=== PATIENT | female | born 1975 | race American Indian/Alaskan Native ===

== ENCOUNTER 2020-10-14 05:54 | Inpatient (IN) | payer OTHER ==
[2020-10-13 10:15] LABS: Hematocrit 28.8 % (30.3-42.9); Mean Corpuscular HGB Conc 31 % (30-34); Mean Corpuscular Volume 82 fl (79-97); Platelet Count 192 K/mm3 (140-440); Red Blood Count 3.52 M/mm3 (3.65-5.03)
[2020-10-13 10:17] LABS: Red Cell Distribution Width 25.1 % (13.2-15.2)
[2020-10-13 11:59] LABS: Anisocytosis 1+; Total Cells Counted 100
[2020-10-13 12:00] LABS: Hypochromasia 1+; Ovalocytes Few; Platelet Estimate Consistent w Auto
--- NOTE | 2020-10-13 13:31 | History and Physical Report ---
History of Present Illness Date of examination: 10/08/20 Date of admission: 10/14/2020 Chief complaint: Menorrhagia, anemia, uterine fibroid and pelvic pain History of present illness: This is a 45-year-old female with a long history of anemia caused by menorrhagia and requiring multiple blood transfusions and iron infusions. She presents now for definitive therapy in the fom of hysterectomy Past History : 2 Term Births: 1 Living Children: 1 Elect. Ab: 1 # 1 Delivery date: 1994 Delivery type: MED ADMIN History Operations: Myomectomy (1996)(2000) Abnormal PAP: positive Infection History HIV Risk Eval: no Personal hx. of genital herpes: yes Hx of STD: Trichomonas Other: HSV Active Medications (reviewed today): None Current Allergies (reviewed today): No known allergies Past Medical History: Reviewed history from 09/10/2020 and no changes required: Blood Transfusion (06/01/2019) 4units for hgb 4.2 Blood Transfusion (06/17/2020) Fe Infusions x4 Anemia Fibroids Past Surgical History: Reviewed history from 08/01/2019 and no changes required: Myomectomy (1996)(2000) Family History Summary: Reviewed history Last on 08/06/2020 and no changes required:10/13/2020 Uncle - Has Family History of Stomach Cancer - Maternal - Entered On: 10/08/2020 Other Family Member - Has No Family History of Uterine Cancer - Entered On: 07/29/2019 Other Family Member - Has No Family History of Small Bowel Cancer - Entered On: 07/29/2019 Other Family Member - Has No Family History of Stomach Cancer - Entered On: 07/29/2019 Other Family Member - Has No Family History of Pancreatic Cancer - Entered On: 07/29/2019 Other Family Member - Has No Family History of Ovarvian Cancer - Entered On: 07/29/2019 Other Family Member - Has No Family History of Kidney/Urinary Tract Cancer - Entered On: 07/29/2019 Other Family Member - Has No Family History of Spontaneous DVT-PE - Entered On: 07/29/2019 Other Family Member - Has No Family History of Colon Cancer - Entered On: 2019 Other Family Member - Has No Family History of Breast Cancer - Entered On: 07/29/2019 Other Family Member - Has No Family History of Biliary Tract Cancer - Entered On: 07/29/2019 Aunt - Has Family History of Brain Cancer - Maternal - Entered On: 07/29/2019 General Comments - FH: MGF Bone cancer Social History: Reviewed history from 07/09/2019 and no changes required: Patient is single Smoking History: Patient has never smoked. Risk Factors: Smoked Tobacco Use: Never smoker Smokeless Tobacco Use: Never Passive smoke exposure: no Drug use: no HIV high-risk behavior: no Alcohol use: yes Exercise: yes Times per week: sometimes Type of Exercise: walking Seatbelt use: 100 % Previous Tobacco Use: Signed On - 08/06/2020 Smoked Tobacco Use: Never smoker Smokeless Tobacco Use: Never Passive smoke exposure: no Drug use: no HIV high-risk behavior: no Previous Alcohol Use: Signed On - 08/06/2020 Alcohol use: yes Drinks per day: social Exercise: no Seatbelt use: 100 % Mammogram History: Date of Last Mammogram: 05/23/2019 PAP Smear History: Date of Last PAP Smear: 08/06/2020 Physical Exam Appearance: well developed, well nourished, no acute distress Other Exams Lungs: no rales, rhonchi, or wheezes Heart: S1, S2, no murmur, rub, or gallop Abdomen: soft, non-tender, mass to (R)UQ Genitourinary Exam Uterus: deferred for EUA Impression & Recommendations: Problem # 1: Fibroids of uterus; Intramural (ICD-218.1) (BZI19-H21.1) Diagnosis explained to patient . Discussed with patient various medical, surgic al and radiological therapies common for treatment including, but not limited to, myomectomy, hysterectomy and uterine artery embolization. Discussed risks and benefits of laparotomy, laparoscopy, vaginal and robotic assisted approaches for hysterectomies. Patient desires definitive treatment in the form of abdominal total hysterectomy. The risks and alternatives for this surgery were reviewed with the patient. She was informed of the risks of the surgery including, but not limited to, pain, infection, bleeding possibly heavy enough to require a blood transfusion with associated risks of infections (hepatitis and HIV) and transfusion reactions, possible damage to bowel, bladder or ur eter(s) and surrounding organs. . Patient understands that this surgery will make her sterile. She was informed she may require a supracervical hysterectomy and also may require a vertical skin incision that may extend around the umbilicus. She desires ovarian conservation. She was informed she may require surgery later to have her ovaries removed for a benign or malignant condition. Patient understands if her ovaries are removed she will become menopausal. . Questions answered. Consent reviewed and signed The patient was instructed/informed the following: The normal length of hospital stay for this procedure. Nothing to eat or drink after midnight the evening prior to surgery.. Pre-op instruction sheets given. Wound care instructions given. Problem # 2: Menorrhagia (ICD-626.2) (FOG13-P79.0) Problem # 3: Pelvic pain, acute (ICD-789.09) (XXP48-O20.2) It was extensively explained to her that her pain may persist, recur or change in nature due to the difficulty with determining the exact etiology(ies) of chronic pelvic pain or development of adhesions. She declined other treatment options at this time. Problem # 4: Anemia secondary to blood loss (chronic) (ICD-280.0) (VXT37-I68.0) Medications and Allergies Allergies Allergy/AdvReac Type Severity Reaction Status Date / Time No Known Allergies Allergy Unverified 10/08/20 16:04 Home Medications Medication Instructions Recorded Confirmed Last Taken Type No Known Home Medications [No 10/08/20 10/08/20 Unknown History Reported Home Medications] Active Meds: Active Medications Cefazolin Sodium (Ancef/Sterile Water 2 Gm/20 Ml) 2 gm in 20 mls @ 80 mls/hr IV PREOP NR; Protocol Results - Labs 10/13/20 06:00 Abnormal lab results 10/13/20 Range/Units 06:00 WBC 2.5 L (4.5-11.0) K/mm3 RBC 3.52 L (3.65-5.03) M/mm3 Hgb 9.0 L (10.1-14.3) gm/dl Hct 28.8 L (30.3-42.9) % MCH 26 L (28-32) pg RDW 25.1 H (13.2-15.2) % Monocytes % (Manual) 10.0 H (0.0-7.3) % Seg Neutrophils # Man 1.4 L (1.8-7.7) K/mm3 Lymphocytes # (Manual) 0.8 L (1.2-5.4) K/mm3 Assessment and Plan - Patient Problems (1) Menorrhagia Status: Chronic (2) Fibroids Status: Chronic (3) Anemia Status: Chronic Qualifiers: Iron deficiency anemia type: chronic blood loss (4) Pelvic pain Status: Chronic
--- NOTE | 2020-10-13 15:25 | Anesthesia Consultation ---
Anesthesia Consult and Med Hx Date of service: 10/14/20 - Pre-Operative Health Status Proposed Anesthetic Plan: General Nerve Block: TAP - Central Nervous System Hx Psychiatric Problems: No - Hematic Hx Anemia: Yes Hx Sickle Cell Disease: No - Other Systems Hx Alcohol Use: Yes (Occas) Hx Cancer: No
[2020-10-14] MEDS ORDERED: CELECOXIB 200 MG CAP PO NR (06:00)
[2020-10-14] MEDS ORDERED: MAGNESIUM OXIDE 400 MG TAB PO SCH (06:00)
[2020-10-14] MEDS ORDERED: ACETAMINOPHEN 500 MG TAB PO SCH (06:00)
[2020-10-14] MEDS ORDERED: GABAPENTIN 300 MG CAP PO NR (06:00)
[2020-10-14] MEDS ORDERED: ceFAZolin/Water 2 GM/20 ML 2 GM/20 ML SYRINGE IV NR (06:00)
[2020-10-14] MEDS ORDERED: MIDAZOLAM 2 MG/2 ML INJ IV NR (06:00)
[2020-10-14] MEDS ORDERED: LACTATED RINGERS 1,000 ML IV SCH (06:00)
[2020-10-14] MEDS ORDERED: fentaNYL 100 MCG/2 ML INJ IV SCH (06:00)
[2020-10-14] MEDS ORDERED: dexAMETHasone 20 MG/5 ML VIAL ONE (07:00)
[2020-10-14] MEDS ORDERED: ROCURONIUM 50 MG/5 ML INJ IV ONE (07:00)
[2020-10-14] MEDS ORDERED: propofoL 200 MG/20 ML VIAL IV ONE (07:04)
[2020-10-14] MEDS ORDERED: ONDANSETRON 4 MG/2 ML INJ ONE (07:04)
[2020-10-14] MEDS ORDERED: HYDROmorphone 1 MG/1 ML INJ ONE (07:04)
[2020-10-14] MEDS ORDERED: LIDOCAINE MPF (2%) 20 MG/1 ML VIAL 5 ML ONE (07:04)
[2020-10-14] MEDS ORDERED: ePHEDrine SULFATE 50 MG/1 ML INJ ONE (07:05)
[2020-10-14] MEDS ORDERED: dexAMETHasone 4 MG/ML VIAL ONE (07:07)
[2020-10-14] MEDS ORDERED: BUPIVACAINE-EPINEPHRINE/PF 0.25%-1:200,000 (30 ML) VIAL INFILTRATI ONE (07:07)
[2020-10-14] MEDS ORDERED: CITRIC ACID-SOD CITRATE 500 ML IV ONE (07:20)
--- NOTE | 2020-10-14 07:24 | Anesthesia Day of Surgery ---
Anesthesia Day of Surgery - Day of Surgery Patient Examined: Yes Patient H&P Reviewed: Yes Patient is NPO: Yes
[2020-10-14] MEDS ORDERED: ONDANSETRON 4 MG/2 ML INJ IV PRN ×2 (08:00→14:00)
[2020-10-14] MEDS ORDERED: HYDROmorphone 1 MG/1 ML INJ IV PRN ×3 (08:00→14:00)
[2020-10-14] MEDS ORDERED: VASOPRESSIN 20 UNIT/1 ML INJ ONE (08:14)
[2020-10-14] MEDS ORDERED: SODIUM CHLORIDE 0.9% 100 ML ONE (08:14)
[2020-10-14] MEDS ORDERED: VASOPRESSIN 20 UNIT/1 ML INJ IM ONE (08:22)
[2020-10-14] MEDS ORDERED: SODIUM CHLORIDE 0.9% 100 ML IVPB IV ONE (08:23)
[2020-10-14] MEDS ORDERED: SODIUM CHLORIDE 0.9% IRR 1,500 ML BOTTLE IR ONE (08:23)
[2020-10-14] MEDS ORDERED: TRANEXAMIC ACID 1,000 MG/10 ML ONE (08:36)
[2020-10-14] MEDS ORDERED: SODIUM CHLORIDE 0.9% 500 ML 500 ML IV SCH (09:00)
[2020-10-14] MEDS ORDERED: METHYLENE BLUE 50 MG/10 ML AMP ONE (09:17)
[2020-10-14] MEDS ORDERED: SUGAMMADEX SODIUM 200 MG/2 ML VIAL IV ONE (10:02)
[2020-10-14] MEDS: HYDROmorphone 1 MG/1 ML INJ IV PRN ×3 (11:14→11:46)
--- NOTE | 2020-10-14 11:27 | Post Operative Note ---
Pre-op diagnosis: s/p DREA Post-op diagnosis: same Procedure: S/P DREA Anesthesia: GETA Surgeon: GEMA LUNA Estimated blood loss: other (600mL) Specimen disposition: to lab Condition: stable Disposition: PACU
[2020-10-14 13:59] LABS: Hematocrit 30.2 % (30.3-42.9); Hemoglobin 9.4 gm/dl (10.1-14.3)
[2020-10-14] MEDS ORDERED: NALOXONE 0.4 MG/1 ML INJ IV PRN (14:00)
[2020-10-14] MEDS ORDERED: SODIUM CHLORIDE 0.9% 1000 ML 1,000 ML IV SCH (14:00)
[2020-10-14] MEDS ORDERED: METOCLOPRAMIDE 10 MG/2 ML INJ IV PRN (14:00)
[2020-10-14] MEDS: ceFAZolin/NS 1 GM/50 ML 1 GM/50 ML BAG IV SCH ×2 (15:39→22:21)
[2020-10-14] MEDS: KETOROLAC 30 MG/1 ML INJ IV SCH ×2 (16:44→22:21)
--- NOTE | 2020-10-14 18:15 | Operative Report ---
Operative Report Operative Report: DATE: 10/14/2020 PREOPERATIVE DIAGNOSIS: 1. Menorrhagia 2. Anemia 3. Pelvic pain 4. Severe uterine fibroid disease POSTOPERATIVE DIAGNOSIS: 1. Menorrhagia 2. Anemia 3. Pelvic pain 4. Severe uterine fibroid disease 5. Pelvic adhesions 6. Left ovarian cyst OPERATION PERFORMED: 1. Total abdominal hysterectomy 2. Bilateral salpingectomy 3. Lysis of adhesions 4. Aspiration of left ovarian cyst SURGEON: Clare Schmidt MD DEFECTIVE CIGARETTE SLITTER: Sameer Romero ANESTHESIA: General. ESTIMATED BLOOD LOSS: 600 mL. She received 220 mL of Cell Saver blood COMPLICATIONS: None. URINE OUTPUT: []mL clear yellow urine OPERATIVE FINDINGS: Exam under anesthesia revealed the uterus to be approximately 2 cm below the left costal margin. PROCEDURE: The patient was taken to the OR and placed in the supine position. General anesthesia was induced. Exam under anesthesia as above. She was prepared and draped in a normal sterile fashion. A vertical skin incision was made with a scalpel and extended around the umbilicus to the upper abdomen and carried down to the underlying fascia with the Bovie. This fascia was incised with Hill scissors and extended in superior inferior direction. Access was gained to the peritoneal cavity through a separation of the rectus muscles with blunt and sharp dissection. No bowel, bladder, ureteral or major vascular injury was noted. The uterus with the fibroids were able to be delivered through the incision. No evidence of malignancy was noted. A massive posterior fundal fibroid was noted as well as multiple large fibroids throughout the u terus including the posterior cul-de-sac. The bowel was placed in the upper abdomen with moist laparotomy sponges. The posterior cul-de-sac initially was unable to be accessed due to adhesions overlying the posterior lower uterine segment and uterosacral ligaments that appeared to involve bowel. The left ovary was adhered to the posterior aspect of the uterus along the tube. There was an approximately 5 cm left ovarian cyst noted. With the uterus elevated, the left ovary was dissected away from the posterior aspect of the uterus then the utero-ovarian ligaments were clamped cauterized and incised bilaterally using the large Enseal device. Due to the large vessels and the inability of the Enseal to completely cauterize the round ligaments were then clamped cut and suture-ligated with 0 Vicryl. The broad ligaments were clamped, cut and suture-ligated bilaterally. The vesicouterine fold was then created with both blunt and sharp dissection. Attention was turned to the posterior lower aspect of the uterus adhesions were sharply dissected away at which point a large fibroid was noted and able to be removed safely. With this maneuver the bowel was released from the posterior aspect of the lower uterine segment and the cul-de-sac was able to be easily accessed. Then attention was turned again to the anterior lower uterine segment where the vesicouterine fold was further d eveloped. The uterine vessels were carefully skeletonized bilaterally. Once the course of the ureters were carefully visualized and noted to be away from the operative field, the uterine vessels were clamped, cut and suture-ligated with 0 Vicryl bilaterally. The cardinal ligaments were then clamped, cut and suture ligated with 0 Vicryl bilaterally. The bladder was further dissected off of the lower uterine segment and cervix. Then using straight Adwoa clamps the remainder of the cardinal ligaments were clamped cut and suture-ligated bilaterally. To ensure better visualization, the uterus and proximal cervix were amputated and the remaining cervix was grasped with single-tooth tenaculum. The remaining cervix was elevated and the uterosacral ligaments were grasped with right angle Adwoa clamps. The cervix was then excised. No bowel, bladder, ureteral or major vascular injury was noted. The midline of the vagina was ligated using 0 Vicryl in [id number] fashion x2. The uterosacral ligaments were ligated using 0 Vicryl with a Bhargav stitch. The pelvis was irrigated with warm normal saline. Attention was turned to the adnexa, the right tube was grasped with a Feli clamp elevated and excised using the Enseal device the usual fashion. Only the distal portion of the left tube was able to be visualized this tube was grasped with Feli clamp elevated and excised using the Enseal device. Each tube was sent to pathology in separate containers. Hemostasis was noted. The left ovarian cyst was then aspirated. Fluid was clear. Again attention was turned to the vaginal cuff where hemostasis was noted. The pelvic sidewalls were again inspected and the ureters were noted to be peristaltic and away from the operative field. Patient was given methylene blue IV with no drainage noted into the pelvis from the ureters or the bladder. The pelvis was irrigated with warm normal saline. Tereso was placed on the adnexa as well as on the vaginal cuff. The laparotomy sponges were removed and a count was performed that was correct. Again no bowel, bladder, ureteral or major vascular injury was noted. The fascia was reapproximated using #1 PDS double-stranded from the superior to the midline and then from the inferior to the midline. Once hemostasis was noted the subcuticular adipose tissue was reapproximated using 0 Vicryl simple running stitch. Once hemostasis is noted the incision was reapproximated using 4-0 Monocryl in a subcuticular manner and Dermabond. Patient had drainage of clear yellow urine into the Sanon catheter the end of the procedure. Patient tolerated procedure well was taken to recovery room in stable condition. Counts were correct x3
--- NOTE | 2020-10-14 18:39 | Post Anesthesia Evaluation ---
- Post Anesthesia Evaluation Patient Participated: Yes Airway Patent: Yes Stable Respiratory Function: Yes Nausea/Vomiting: No Temp > 96.8F: Yes Pain Manageable: Yes Adequeate Hydration: Yes Anesthesia Complications: No Block Receding Appropriately: Not Applicable Patient on Ventilator: No
--- NOTE | 2020-10-14 19:56 | Event Note ---
Date: 10/14/20 Patient resting in bed. No complaints. Operative findings and procedure explained. Plan of care discussed. Good UO noted. She voiced understanding and agrees with POC.
[2020-10-14] MEDS: FAMOTIDINE 20 MG/2 ML INJ IV SCH (22:21)
[2020-10-15] MEDS: KETOROLAC 30 MG/1 ML INJ IV SCH ×2 (05:19→11:41)
[2020-10-15 06:06] LABS: Hematocrit 23.8 % (30.3-42.9); Hemoglobin 7.7 gm/dl (10.1-14.3)
[2020-10-15 09:04] LABS: Hematocrit 23.9 % (30.3-42.9); Hemoglobin 7.8 gm/dl (10.1-14.3); Mean Corpuscular HGB Conc 32 % (30-34); Mean Corpuscular Volume 81 fl (79-97); Platelet Count 175 K/mm3 (140-440); Red Blood Count 2.95 M/mm3 (3.65-5.03)
[2020-10-15 09:10] LABS: Red Cell Distribution Width 24.8 % (13.2-15.2)
--- NOTE | 2020-10-15 09:40 | Progress Note ---
Assessment and Plan - Patient Problems (1) Status post total abdominal hysterectomy Current Visit: Yes Status: Acute Plan to address problem: Doing well, will advance diet after flatus. Plan of care explained. Encourage ambulation (2) Anemia Current Visit: No Status: Chronic Qualifiers: Iron deficiency anemia type: chronic blood loss Plan to address problem: stable,asymptomatic, will start FeSO4 when she starts a solid diet (3) Nasal congestion Current Visit: Yes Status: Acute (4) Menorrhagia Current Visit: No Status: Resolved (5) Fibroids Current Visit: No Status: Resolved (6) Pelvic pain Current Visit: No Status: Resolved Subjective - Subjective Date of service: 10/15/20 Principal diagnosis: POD#1 s/p DREA Interval history: Complains of nasal congestion Patient reports: appetite normal, voiding normally, pain well controlled, ambulating normally, no flatus, no nauseated Objective - Vital Signs Latest vital signs: Vital Signs Temp Pulse Resp BP BP Pulse Ox 10/15/20 07:32 98.2 F 80 19 124/69 98 10/15/20 05:19 18 10/15/20 04:48 98.8 F 84 20 108/66 98 10/15/20 00:47 98.0 F 78 20 121/72 100 10/14/20 22:21 18 10/14/20 22:00 18 10/14/20 20:14 98.1 F 70 20 121/73 100 10/14/20 12:30 97.9 F 68 14 133/84 100 10/14/20 12:00 77 14 117/68 100 10/14/20 11:45 97 F L 76 16 133/72 100 10/14/20 11:30 75 16 129/69 100 10/14/20 11:15 68 16 125/68 100 10/14/20 11:00 81 16 124/67 100 10/14/20 10:55 81 16 124/61 100 10/14/20 10:48 97.6 F 77 16 126/71 100 Intake and Output 10/14/20 10/15/20 10/15/20 22:59 06:59 14:59 Intake Total 370 Output Total 650 2200 200 Balance -280 -2200 -200 Intake: IV 50 ANCEF/NS 1 GM/50 ML 1 gm 50 In 50 ml @ 100 mls/hr IV Q8H STEPHIE Rx#:[id number] Oral 320 Output: Urine 650 2200 200 Indwelling Catheter 650 2200 Void 200 Other: Total, Intake Amount 200 Total, Output Amount 650 600 200 Voiding Method Indwelling Catheter Toilet # Voids Void 1 - Exam Breasts: Present: deferred Cardiovascular: Present: Regular rate Lungs: Present: Clear to auscultation, Normal air movement Abdomen: Present: normal appearance, soft, normal bowel sounds. Absent: distention Extremities: Present: normal. Absent: tenderness, edema Incision: Present: dressed - Labs Labs: Abnormal lab results 10/14/20 10/15/20 10/15/20 Range/Units 13:39 05:44 05:44 RBC 2.95 L (3.65-5.03) M/mm3 Hgb 9.4 L 7.7 L 7.8 L (10.1-14.3) gm/dl Hct 30.2 L 23.8 L D 23.9 L (30.3-42.9) % MCH 26 L (28-32) pg RDW 24.8 H (13.2-15.2) %
[2020-10-15] MEDS: guaiFENesin ER 600 MG TAB PO SCH ×2 (09:45→22:45)
[2020-10-15] MEDS: FAMOTIDINE 20 MG/2 ML INJ IV SCH ×2 (09:45→22:45)
[2020-10-15] MEDS: IBUPROFEN 800 MG TAB PO PRN (17:37)
[2020-10-15] MEDS ORDERED: LORATADINE/PSEUDOEPHEDRINE 5-120 MG TAB 12HR PO SCH (22:00)
--- NOTE | 2020-10-16 10:02 | Discharge Summary ---
Providers - Providers Date of Admission: 10/14/20 05:54 Date of discharge: 10/16/20 Attending physician: GEMA LUNA Primary care physician: AGRICULTURAL RESEARCH ENGINEER Hospitalization Condition: Good Procedures: DMITRI SHEPARD Disposition: DC-01 TO HOME OR SELFCARE Final Discharge Diagnosis (Prints w/discharge instructions): Status post total abdominal hysterectomy with bilateral salpingectomy and lysis of adhesions - Discharge Diagnoses (1) Status post total abdominal hysterectomy Status: Acute (2) Anemia Status: Chronic Qualifiers: Iron deficiency anemia type: chronic blood loss (3) Nasal congestion Status: Acute (4) Menorrhagia Status: Resolved (5) Fibroids Status: Resolved (6) Pelvic pain Status: Resolved (7) Sinusitis Status: Acute Core Measure Documentation - Palliative Care Palliative Care/ Comfort Measures: Not Applicable - Core Measures Any of the following diagnoses?: none Exam - Physical Exam Narrative exam: Patient is doing well, complains of sinus drainage however she desires discharge home. Positive flatus tolerating a regular diet she is ambulating without any difficulty. - Constitutional Vitals: Temp Pulse Resp BP Pulse Ox 98.1 F 68 18 128/75 99 10/16/20 07:33 10/16/20 07:33 10/16/20 07:33 10/16/20 07:33 10/16/20 07:33 General appearance: Present: no acute distress - Neck Neck: Present: supple - Respiratory Respiratory effort: normal Respiratory: bilateral: CTA - Cardiovascular Rhythm: regular - Extremities Extremities: no ischemia, No edema - Abdominal General gastrointestinal: Present: soft, non-distended, normal bowel sounds - Integumentary Integumentary: Present: clear, warm, dry (Incision clean, dry and intact.) - Psychiatric Psychiatric: appropriate mood/affect, intact judgment & insight, memory intact, cooperative - Neurologic Neurologic: CNII-XII intact Plan Activity: other (No sex. No driving. Ambulate approximately 1 mile on her property a day. Use your incentive spirometer every hour while awake. Void frequently.) Weight Bearing Status: Full Weight Bearing Diet: regular (Eat small meals frequently. Avoid high salt, high fat and spicy foods. Drink approximately 80 ounces of water a day.) Wound: open to air, keep clean and dry Special Instructions: no heavy lifting (Greater than 15 pounds) Additional Instructions: Eat a small snack prior to taking Percocet and ibuprofen. Follow up with: PRIMARY CARE, [Primary Care Provider] - 7 Days GEMA LUNA MD [Staff Physician] - (As scheduled) Prescriptions: Loratadine/Pseudoephedrine [Claritin-D 12HR] 1 each PO Q12HR #30 tablet Docusate Sodium [Colace] 100 mg PO BID PRN #30 capsule PRN Reason: Constipation Ferrous Sulfate [Ferrous Sulfate 324 MG] 324 mg PO BIDPC #90 tablet. Ibuprofen [Motrin 800 MG tab] 800 mg PO Q8H PRN #30 tablet PRN Reason: Pain, Moderate (4-6) guaiFENesin ER [Mucinex ER] 600 mg PO BID #30 tablet oxyCODONE /ACETAMINOPHEN [Percocet 5/325] 1 tab PO Q6HR PRN #14 tablet PRN Reason: Pain Sulfamethoxazole/Trimethoprim [Sulfamethoxazole-Tmp Ds Tablet] 1 each PO BIDPC #10 tablet
[2020-10-16] MEDS: IBUPROFEN 800 MG TAB PO PRN (10:55)
[2020-10-16] MEDS: guaiFENesin ER 600 MG TAB PO SCH (10:56)
[2020-10-16 11:50] VITALS: BP 125/83
== END 2020-10-16 12:00 | disposition home or self-care (01) | DRG 743 ==
LOC: 3A 05:54 → OB 11:47
PROVIDERS: ADMIT Obstetrics & Gynecology; ATTEND Obstetrics & Gynecology
PROC: 0UT90ZZ Resection of Uterus, Open Approach (ICD-10-PCS; principal; 2020-10-14)
PROC: 0UT70ZZ Resection of Bilateral Fallopian Tubes, Open Approach (ICD-10-PCS; 2020-10-14)
PROC: 0U910ZX Drainage of Left Ovary, Open Approach, Diagnostic (ICD-10-PCS; 2020-10-14)
DX: D25.1 Intramural leiomyoma of uterus (principal); N92.0 Excessive and frequent menstruation with regular cycle; D50.0 Iron deficiency anemia secondary to blood loss (chronic); R09.81 Nasal congestion; J32.9 Chronic sinusitis, unspecified; Z20.822 Contact with and (suspected) exposure to COVID-19; N83.202 Unspecified ovarian cyst, left side; Z72.89 Other problems related to lifestyle
CPT/HCPCS: 36415; 64450; 81025; 85007; 85014; 85018; 85025; 85027; 86850; 86900; 86901; 86920; 88302; 88307; G0378; J0690; J1100; J1170; J1885; J2405; J2704; J7030; Q9968; U0003